=== PATIENT | female | born 1945 | race Caucasian/White ===

== ENCOUNTER 2023-12-30 13:02 | Outpatient (REF) | payer MEDICARE, SELFPAY ==
[2023-12-30 13:08] LABS: Abs Immature Grans 0.02 10^3/uL (0.0-0.06); Absolute Basophil Count 0.02 10^3/uL (0.0-0.2); Absolute Eosinophil Count 0.04 10^3/uL (0.0-0.7); Absolute Lymphocyte Count 1.56 10^3/uL (1.2-3.4); Absolute Monocyte Count 0.56 10^3/uL (0.1-0.8); Absolute Neutrophil Count 5.23 10^3/uL (1.2-6.7); Basophils % 0.3 %; Eosinophils % 0.5 %; HGB 12.3 g/dL (11.2-15.7); Immature Grans % 0.3 %; MCH 31.2 pg (27.0-33.0); MCHC 32.4 % (32.0-36.0); MCV 96 fL (80-95); MPV 10.1 fL (8.0-11.0); Monocytes % 7.5 %; Neutrophils % 70.4 %; Platelet Count 304 10^3/uL (130-400); RBC 3.94 10^6/uL (3.93-5.22); RDW 12.6 % (11.7-14.6); RDW-SD 45.1 fL; WBC 7.43 10^3/uL (4.4-10.8)
[2023-12-30 13:26] LABS: ALT 20 U/L (14-59); AST 21 U/L (15-37); Albumin 3.8 g/dL (3.4-5.0); Alkaline Phosphatase 174 U/L (46-116); Anion Gap 11.2 mmol/L (3-11); BUN 16 mg/dL (7-18); Bilirubin, Total 0.5 mg/dL (0.2-1.0); CO2 26.8 mmol/L (21.0-32.0); CREATININE 0.5 mg/dL (0.55-1.02); Calcium 9.4 mg/dL (8.5-10.1); Chloride 103 mmol/L (98-107); Estimated GFR 97.14 (mL/min/1.73m2); Glucose 106 mg/dL (74-106); Potassium 3.9 mmol/L (3.5-5.1); Sodium 141 mmol/L (136-145); TSH 2.21 uIU/Ml (0.36-3.74); Total Protein 8.1 g/dL (6.4-8.2)
== END 2023-12-30 13:03 | disposition home or self-care (01) ==
LOC: LBN 13:02
PROVIDERS: PCP Family Medicine; Visit Provider Internal Medicine Medical Oncology
DX: C34.12 Malignant neoplasm of upper lobe, left bronchus or lung (principal); C79.51 Secondary malignant neoplasm of bone; Z79.899 Other long term (current) drug therapy
CPT/HCPCS: 80053; 84439; 84443; 85025

== ENCOUNTER 2024-01-20 09:39 | Outpatient (CLI) | payer MEDICARE, SELFPAY ==
[2024-01-20 09:10] LABS: Abs Immature Grans 0.03 10^3/uL (0.0-0.06); Absolute Basophil Count 0.04 10^3/uL (0.0-0.2); Absolute Lymphocyte Count 1.37 10^3/uL (1.2-3.4); Absolute Monocyte Count 0.94 10^3/uL (0.1-0.8); Absolute Neutrophil Count 3.55 10^3/uL (1.2-6.7); Basophils % 0.6 %; Eosinophils % 4.8 %; HCT 36.5 % (36.0-46.0); HGB 11.7 g/dL (11.2-15.7); Immature Grans % 0.5 %; MCH 30.8 pg (27.0-33.0); MCHC 32.1 % (32.0-36.0); MCV 96 fL (80-95); MPV 8.3 fL (8.0-11.0); Monocytes % 15.1 %; Platelet Count 386 10^3/uL (130-400); RDW 13.1 % (11.7-14.6); RDW-SD 46.5 fL; WBC 6.23 10^3/uL (4.4-10.8)
[2024-01-20 09:35] LABS: ALT 23 U/L (14-59); AST 14 U/L (15-37); Albumin 3.6 g/dL (3.4-5.0); Alkaline Phosphatase 146 U/L (46-116); BUN 11 mg/dL (7-18); Bilirubin, Total 0.4 mg/dL (0.2-1.0); CREATININE 0.6 mg/dL (0.55-1.02); Calcium 9.3 mg/dL (8.5-10.1); Chloride 103 mmol/L (98-107); Estimated GFR 92.97 (mL/min/1.73m2); FREE T4 0.98 ng/dL (0.76-1.46); Glucose 104 mg/dL (74-106); Magnesium 2.2 mg/dL (1.8-2.4); Potassium 3.3 mmol/L (3.5-5.1); Sodium 141 mmol/L (136-145); TSH 3.49 uIU/Ml (0.36-3.74)
== END 2024-01-20 09:40 | disposition home or self-care (01) ==
LOC: LBO 09:40
PROVIDERS: PCP Family Medicine; Visit Provider Internal Medicine Medical Oncology
DX: Z79.899 Other long term (current) drug therapy (principal); C34.12 Malignant neoplasm of upper lobe, left bronchus or lung
CPT/HCPCS: 36415; 80053; 83735; 84439; 84443; 85025

== ENCOUNTER 2024-02-10 03:02 | Outpatient (CLI) | payer MEDICARE, SELFPAY ==
[2024-02-10 09:07] LABS: Abs Immature Grans 0.12 10^3/uL (0.0-0.06); Absolute Basophil Count 0.05 10^3/uL (0.0-0.2); Absolute Eosinophil Count 0.24 10^3/uL (0.0-0.7); Absolute Lymphocyte Count 1.86 10^3/uL (1.2-3.4); Absolute Monocyte Count 0.88 10^3/uL (0.1-0.8); Basophils % 0.4 %; HCT 35.1 % (36.0-46.0); HGB 11.2 g/dL (11.2-15.7); Lymphocytes % 15.8 %; MCH 30.7 pg (27.0-33.0); MCHC 31.9 % (32.0-36.0); MCV 96 fL (80-95); MPV 7.8 fL (8.0-11.0); Monocytes % 7.5 %; Neutrophils % 73.3 %; Platelet Count 524 10^3/uL (130-400); RBC 3.65 10^6/uL (3.93-5.22); RDW 14.4 % (11.7-14.6); RDW-SD 50.2 fL; WBC 11.77 10^3/uL (4.4-10.8)
[2024-02-10 09:09] LABS: Absolute Neutrophil Count 8.63 10^3/uL (1.2-6.7)
[2024-02-10 09:31] LABS: ALT 34 U/L (14-59); AST 16 U/L (15-37); Albumin 3.6 g/dL (3.4-5.0); Alkaline Phosphatase 114 U/L (46-116); Anion Gap 7.6 mmol/L (3-11); BUN 16 mg/dL (7-18); Bilirubin, Total 0.23 mg/dL (0.2-1.0); CO2 30.4 mmol/L (21.0-32.0); CREATININE 0.7 mg/dL (0.55-1.02); Calcium 9.1 mg/dL (8.5-10.1); Chloride 103 mmol/L (98-107); Estimated GFR 89.58 (mL/min/1.73m2); FREE T4 1.03 ng/dL (0.76-1.46); Glucose 95 mg/dL (74-106); Magnesium 1.9 mg/dL (1.8-2.4); Potassium 3.7 mmol/L (3.5-5.1); Sodium 141 mmol/L (136-145); TSH 4.68 uIU/Ml (0.36-3.74); Total Protein 7.9 g/dL (6.4-8.2)
== END 2024-02-10 03:03 | disposition home or self-care (01) ==
LOC: LBO 03:03
PROVIDERS: PCP Family Medicine; Visit Provider Internal Medicine Medical Oncology
DX: Z79.899 Other long term (current) drug therapy (principal); C34.12 Malignant neoplasm of upper lobe, left bronchus or lung
CPT/HCPCS: 36415; 80053; 83735; 84439; 84443; 85025

== ENCOUNTER 2024-03-02 03:26 | Outpatient (CLI) | payer MEDICARE, SELFPAY ==
[2024-03-02 10:30] LABS: Abs Immature Grans 0.03 10^3/uL (0.0-0.06); Absolute Basophil Count 0.03 10^3/uL (0.0-0.2); Absolute Eosinophil Count 0.16 10^3/uL (0.0-0.7); Absolute Lymphocyte Count 1.14 10^3/uL (1.2-3.4); Absolute Monocyte Count 0.55 10^3/uL (0.1-0.8); Absolute Neutrophil Count 8.68 10^3/uL (1.2-6.7); Basophils % 0.3 %; Eosinophils % 1.5 %; HCT 37.8 % (36.0-46.0); HGB 12.1 g/dL (11.2-15.7); Immature Grans % 0.3 %; Lymphocytes % 10.8 %; MCH 31.3 pg (27.0-33.0); MCV 98 fL (80-95); MPV 8.3 fL (8.0-11.0); Monocytes % 5.2 %; Neutrophils % 81.9 %; Platelet Count 353 10^3/uL (130-400); RBC 3.86 10^6/uL (3.93-5.22); RDW-SD 60.3 fL; WBC 10.59 10^3/uL (4.4-10.8)
[2024-03-02 10:56] LABS: ALT 29 U/L (14-59); AST 17 U/L (15-37); Albumin 3.7 g/dL (3.4-5.0); Alkaline Phosphatase 139 U/L (46-116); Anion Gap 7.2 mmol/L (3-11); BUN 14 mg/dL (7-18); CO2 28.8 mmol/L (21.0-32.0); CREATININE 0.7 mg/dL (0.55-1.02); Chloride 106 mmol/L (98-107); Estimated GFR 89.58 (mL/min/1.73m2); FREE T4 0.98 ng/dL (0.76-1.46); Glucose 98 mg/dL (74-106); Potassium 3.8 mmol/L (3.5-5.1); Sodium 142 mmol/L (136-145); TSH 2.06 uIU/Ml (0.36-3.74)
== END 2024-03-02 03:27 | disposition home or self-care (01) ==
LOC: LBO 03:26
PROVIDERS: PCP Family Medicine; Visit Provider Internal Medicine Medical Oncology
DX: Z79.899 Other long term (current) drug therapy (principal); C34.12 Malignant neoplasm of upper lobe, left bronchus or lung
CPT/HCPCS: 36415; 80053; 83735; 84439; 84443; 85025

== ENCOUNTER 2024-03-23 03:21 | Outpatient (CLI) | payer MEDICARE, SELFPAY ==
[2024-03-23 09:50] LABS: Abs Immature Grans 0.07 10^3/uL (0.0-0.06); Absolute Basophil Count 0.03 10^3/uL (0.0-0.2); Absolute Eosinophil Count 0.08 10^3/uL (0.0-0.7); Absolute Lymphocyte Count 1.08 10^3/uL (1.2-3.4); Absolute Monocyte Count 0.63 10^3/uL (0.1-0.8); Absolute Neutrophil Count 8.04 10^3/uL (1.2-6.7); Basophils % 0.3 %; Eosinophils % 0.8 %; HCT 38.6 % (36.0-46.0); HGB 12.2 g/dL (11.2-15.7); Immature Grans % 0.7 %; Lymphocytes % 10.9 %; MCH 31.6 pg (27.0-33.0); MCHC 31.6 % (32.0-36.0); MCV 100 fL (80-95); MPV 8.5 fL (8.0-11.0); Monocytes % 6.3 %; Platelet Count 323 10^3/uL (130-400); RBC 3.86 10^6/uL (3.93-5.22); RDW 17.2 % (11.7-14.6); RDW-SD 63.7 fL; WBC 9.93 10^3/uL (4.4-10.8)
[2024-03-23 10:28] LABS: ALT 25 U/L (14-59); AST 15 U/L (15-37); Albumin 3.8 g/dL (3.4-5.0); Alkaline Phosphatase 119 U/L (46-116); Anion Gap 5.8 mmol/L (3-11); BUN 20 mg/dL (7-18); CO2 32.2 mmol/L (21.0-32.0); CREATININE 0.7 mg/dL (0.55-1.02); Calcium 9.9 mg/dL (8.5-10.1); Chloride 103 mmol/L (98-107); Estimated GFR 89.58 (mL/min/1.73m2); FREE T4 0.73 ng/dL (0.76-1.46); Glucose 96 mg/dL (74-106); Potassium 4.2 mmol/L (3.5-5.1); Sodium 141 mmol/L (136-145); TSH 1.85 uIU/Ml (0.36-3.74); Total Protein 7.7 g/dL (6.4-8.2)
== END 2024-03-23 03:22 | disposition home or self-care (01) ==
LOC: LBO 03:22
PROVIDERS: PCP Family Medicine; Visit Provider Internal Medicine Medical Oncology
DX: Z79.899 Other long term (current) drug therapy (principal); C34.12 Malignant neoplasm of upper lobe, left bronchus or lung
CPT/HCPCS: 36415; 80053; 83735; 84439; 84443; 85025

== ENCOUNTER 2024-04-13 03:15 | Outpatient (CLI) | payer MEDICARE, SELFPAY ==
[2024-04-13 08:10] LABS: Abs Immature Grans 0.02 10^3/uL (0.0-0.06); Absolute Basophil Count 0.03 10^3/uL (0.0-0.2); Absolute Eosinophil Count 0.16 10^3/uL (0.0-0.7); Absolute Lymphocyte Count 2.62 10^3/uL (1.2-3.4); Absolute Monocyte Count 0.65 10^3/uL (0.1-0.8); Absolute Neutrophil Count 4.83 10^3/uL (1.2-6.7); Basophils % 0.4 %; Eosinophils % 1.9 %; HCT 38.1 % (36.0-46.0); Immature Grans % 0.2 %; Lymphocytes % 31.5 %; MCH 32.6 pg (27.0-33.0); MCHC 31.5 % (32.0-36.0); MCV 104 fL (80-95); MPV 8.6 fL (8.0-11.0); Monocytes % 7.8 %; Neutrophils % 58.2 %; Platelet Count 298 10^3/uL (130-400); RBC 3.68 10^6/uL (3.93-5.22); RDW 14.7 % (11.7-14.6); RDW-SD 56.7 fL; WBC 8.31 10^3/uL (4.4-10.8)
[2024-04-13 08:37] LABS: ALT 20 U/L (14-59); AST 16 U/L (15-37); Albumin 3.8 g/dL (3.4-5.0); Alkaline Phosphatase 94 U/L (46-116); Anion Gap 4.6 mmol/L (3-11); BUN 15 mg/dL (7-18); Bilirubin, Total 0.44 mg/dL (0.2-1.0); CO2 33.4 mmol/L (21.0-32.0); CREATININE 0.7 mg/dL (0.55-1.02); Calcium 9.6 mg/dL (8.5-10.1); Chloride 105 mmol/L (98-107); Estimated GFR 89.58 (mL/min/1.73m2); FREE T4 1.01 ng/dL (0.76-1.46); Glucose 107 mg/dL (74-106); Potassium 3.2 mmol/L (3.5-5.1); Sodium 143 mmol/L (136-145); TSH 4.48 uIU/Ml (0.36-3.74); Total Protein 7.7 g/dL (6.4-8.2)
== END 2024-04-13 03:16 | disposition home or self-care (01) ==
LOC: LBO 03:15
PROVIDERS: PCP Family Medicine; Visit Provider Internal Medicine Medical Oncology
DX: Z79.899 Other long term (current) drug therapy (principal); C34.12 Malignant neoplasm of upper lobe, left bronchus or lung; C79.51 Secondary malignant neoplasm of bone
CPT/HCPCS: 36415; 80053; 84439; 84443; 85025

== ENCOUNTER 2024-05-04 04:21 | Outpatient (CLI) | payer MEDICARE, SELFPAY ==
[2024-05-04 07:54] LABS: Abs Immature Grans 0.03 10^3/uL (0.0-0.06); Absolute Basophil Count 0.03 10^3/uL (0.0-0.2); Absolute Eosinophil Count 0.14 10^3/uL (0.0-0.7); Absolute Neutrophil Count 8.04 10^3/uL (1.2-6.7); Basophils % 0.3 %; Eosinophils % 1.3 %; HGB 12.5 g/dL (11.2-15.7); Immature Grans % 0.3 %; Lymphocytes % 17.7 %; MCH 33.3 pg (27.0-33.0); MCHC 32.9 % (32.0-36.0); MCV 101 fL (80-95); MPV 8.9 fL (8.0-11.0); Monocytes % 5.6 %; Neutrophils % 74.8 %; Platelet Count 304 10^3/uL (130-400); RBC 3.75 10^6/uL (3.93-5.22); RDW-SD 48.7 fL; WBC 10.74 10^3/uL (4.4-10.8)
[2024-05-04 08:23] LABS: ALT 30 U/L (14-59); AST 18 U/L (15-37); Albumin 3.9 g/dL (3.4-5.0); Alkaline Phosphatase 95 U/L (46-116); Anion Gap 8.2 mmol/L (3-11); BUN 13 mg/dL (7-18); Bilirubin, Total 0.54 mg/dL (0.2-1.0); CO2 29.8 mmol/L (21.0-32.0); CREATININE 0.8 mg/dL (0.55-1.02); Calcium 9.8 mg/dL (8.5-10.1); Chloride 105 mmol/L (98-107); Estimated GFR 76.31 (mL/min/1.73m2); Glucose 103 mg/dL (74-106); Magnesium 2.1 mg/dL (1.8-2.4); Sodium 143 mmol/L (136-145); TSH 4.11 uIU/Ml (0.36-3.74); Total Protein 8.1 g/dL (6.4-8.2)
== END 2024-05-04 04:22 | disposition home or self-care (01) ==
LOC: LBO 04:21
PROVIDERS: PCP Family Medicine; Visit Provider Internal Medicine Medical Oncology
DX: Z79.899 Other long term (current) drug therapy (principal); C34.12 Malignant neoplasm of upper lobe, left bronchus or lung
CPT/HCPCS: 36415; 80053; 83735; 84439; 84443; 85025

== ENCOUNTER 2024-05-25 08:21 | Outpatient (CLI) | payer MEDICARE, SELFPAY ==
[2024-05-25 07:45] LABS: Abs Immature Grans 0.02 10^3/uL (0.0-0.06); Absolute Basophil Count 0.04 10^3/uL (0.0-0.2); Absolute Eosinophil Count 0.57 10^3/uL (0.0-0.7); Absolute Lymphocyte Count 2.38 10^3/uL (1.2-3.4); Absolute Monocyte Count 0.78 10^3/uL (0.1-0.8); Absolute Neutrophil Count 4.85 10^3/uL (1.2-6.7); Basophils % 0.5 %; Eosinophils % 6.6 %; HCT 36.8 % (36.0-46.0); Immature Grans % 0.2 %; Lymphocytes % 27.5 %; MCH 33.1 pg (27.0-33.0); MCHC 32.6 % (32.0-36.0); MCV 101 fL (80-95); MPV 8.8 fL (8.0-11.0); Neutrophils % 56.2 %; Platelet Count 307 10^3/uL (130-400); RBC 3.63 10^6/uL (3.93-5.22); RDW 11.9 % (11.7-14.6); RDW-SD 44.2 fL; WBC 8.64 10^3/uL (4.4-10.8)
[2024-05-25 08:24] LABS: ALT 27 U/L (14-59); AST 20 U/L (15-37); Albumin 3.7 g/dL (3.4-5.0); Alkaline Phosphatase 84 U/L (46-116); BUN 16 mg/dL (7-18); Bilirubin, Total 0.51 mg/dL (0.2-1.0); CREATININE 0.7 mg/dL (0.55-1.02); Calcium 9.7 mg/dL (8.5-10.1); Chloride 109 mmol/L (98-107); Estimated GFR 89.58 (mL/min/1.73m2); FREE T4 0.91 ng/dL (0.76-1.46); Glucose 95 mg/dL (74-106); Potassium 3.7 mmol/L (3.5-5.1); Sodium 145 mmol/L (136-145); TSH 5.03 uIU/Ml (0.36-3.74); Total Protein 7.7 g/dL (6.4-8.2)
== END 2024-05-25 08:22 | disposition home or self-care (01) ==
LOC: LBO 08:22
PROVIDERS: PCP Family Medicine; Visit Provider Internal Medicine Medical Oncology
DX: Z79.899 Other long term (current) drug therapy (principal); C34.12 Malignant neoplasm of upper lobe, left bronchus or lung; C79.51 Secondary malignant neoplasm of bone
CPT/HCPCS: 36415; 80053; 83735; 84439; 84443; 85025

== ENCOUNTER 2024-06-15 02:05 | Outpatient (CLI) | payer MEDICARE, SELFPAY ==
[2024-06-15 08:04] LABS: Abs Immature Grans 0.03 10^3/uL (0.0-0.06); Absolute Basophil Count 0.05 10^3/uL (0.0-0.2); Absolute Eosinophil Count 0.56 10^3/uL (0.0-0.7); Absolute Lymphocyte Count 2.63 10^3/uL (1.2-3.4); Absolute Monocyte Count 0.75 10^3/uL (0.1-0.8); Absolute Neutrophil Count 3.81 10^3/uL (1.2-6.7); Basophils % 0.6 %; Eosinophils % 7.2 %; HCT 35.5 % (36.0-46.0); HGB 11.5 g/dL (11.2-15.7); Immature Grans % 0.4 %; Lymphocytes % 33.6 %; MCH 32.5 pg (27.0-33.0); MCHC 32.4 % (32.0-36.0); MCV 100 fL (80-95); MPV 8.5 fL (8.0-11.0); Monocytes % 9.6 %; Neutrophils % 48.6 %; Platelet Count 397 10^3/uL (130-400); RBC 3.54 10^6/uL (3.93-5.22); RDW 12.1 % (11.7-14.6); RDW-SD 45.4 fL; WBC 7.83 10^3/uL (4.4-10.8)
[2024-06-15 08:38] LABS: ALT 32 U/L (14-59); AST 36 U/L (15-37); Albumin 3.3 g/dL (3.4-5.0); Alkaline Phosphatase 87 U/L (46-116); Anion Gap 6.7 mmol/L (3-11); BUN 6 mg/dL (7-18); Bilirubin, Total 0.57 mg/dL (0.2-1.0); CO2 32.3 mmol/L (21.0-32.0); CREATININE 0.7 mg/dL (0.55-1.02); Calcium 9.2 mg/dL (8.5-10.1); Chloride 107 mmol/L (98-107); Estimated GFR 89.58 (mL/min/1.73m2); FREE T4 1.06 ng/dL (0.76-1.46); Glucose 97 mg/dL (74-106); Magnesium 1.7 mg/dL (1.8-2.4); Potassium 3.2 mmol/L (3.5-5.1); Sodium 146 mmol/L (136-145); TSH 6.95 uIU/mL (0.36-3.74); Total Protein 7.3 g/dL (6.4-8.2)
== END 2024-06-15 02:06 | disposition home or self-care (01) ==
LOC: LBO 02:05
PROVIDERS: PCP Family Medicine; Visit Provider Internal Medicine Medical Oncology
DX: Z79.899 Other long term (current) drug therapy (principal); C34.12 Malignant neoplasm of upper lobe, left bronchus or lung; C79.51 Secondary malignant neoplasm of bone
CPT/HCPCS: 36415; 80053; 83735; 84439; 84443; 85025

== ENCOUNTER 2024-07-06 03:07 | Outpatient (CLI) | payer MEDICARE, SELFPAY ==
[2024-07-06 08:33] LABS: Abs Immature Grans 0.04 10^3/uL (0.0-0.06); Absolute Basophil Count 0.04 10^3/uL (0.0-0.2); Absolute Eosinophil Count 0.22 10^3/uL (0.0-0.7); Absolute Lymphocyte Count 2.19 10^3/uL (1.2-3.4); Absolute Monocyte Count 0.57 10^3/uL (0.1-0.8); Absolute Neutrophil Count 7.29 10^3/uL (1.2-6.7); Basophils % 0.4 %; Eosinophils % 2.1 %; HGB 11.3 g/dL (11.2-15.7); Immature Grans % 0.4 %; Lymphocytes % 21.2 %; MCH 31.9 pg (27.0-33.0); MCHC 31.4 % (32.0-36.0); MCV 102 fL (80-95); MPV 8.6 fL (8.0-11.0); Monocytes % 5.5 %; Neutrophils % 70.4 %; Platelet Count 337 10^3/uL (130-400); RBC 3.54 10^6/uL (3.93-5.22); RDW 12.6 % (11.7-14.6); RDW-SD 47.6 fL; WBC 10.35 10^3/uL (4.4-10.8)
[2024-07-06 09:01] LABS: ALT 27 U/L (14-59); AST 18 U/L (15-37); Albumin 3.7 g/dL (3.4-5.0); Alkaline Phosphatase 89 U/L (46-116); Anion Gap 6.3 mmol/L (3-11); BUN 16 mg/dL (7-18); Bilirubin, Total 0.57 mg/dL (0.2-1.0); CO2 30.7 mmol/L (21.0-32.0); CREATININE 0.8 mg/dL (0.55-1.02); Calcium 9.3 mg/dL (8.5-10.1); Chloride 108 mmol/L (98-107); Estimated GFR 75.84 (mL/min/1.73m2); Glucose 98 mg/dL (74-106); Magnesium 1.9 mg/dL (1.8-2.4); Potassium 3.4 mmol/L (3.5-5.1); Sodium 145 mmol/L (136-145); TSH 4.61 uIU/mL (0.36-3.74); Total Protein 7.5 g/dL (6.4-8.2)
== END 2024-07-06 03:08 | disposition home or self-care (01) ==
LOC: LBO 03:07
PROVIDERS: PCP Family Medicine; Visit Provider Internal Medicine Medical Oncology
DX: Z79.899 Other long term (current) drug therapy (principal); C34.12 Malignant neoplasm of upper lobe, left bronchus or lung
CPT/HCPCS: 36415; 80053; 83735; 84439; 84443; 85025

== ENCOUNTER 2024-08-18 02:20 | Outpatient (CLI) | payer MEDICARE, SELFPAY ==
[2024-08-18 12:30] LABS: Abs Immature Grans 0.03 10^3/uL (0.0-0.06); Absolute Basophil Count 0.01 10^3/uL (0.0-0.2); Absolute Eosinophil Count 0.04 10^3/uL (0.0-0.7); Absolute Monocyte Count 0.23 10^3/uL (0.1-0.8); Absolute Neutrophil Count 5.79 10^3/uL (1.2-6.7); Basophils % 0.1 %; Eosinophils % 0.6 %; HCT 35.9 % (36.0-46.0); HGB 11.4 g/dL (11.2-15.7); Immature Grans % 0.4 %; Lymphocytes % 15.3 %; MCH 31.7 pg (27.0-33.0); MCHC 31.8 % (32.0-36.0); MCV 100 fL (80-95); MPV 8.5 fL (8.0-11.0); Monocytes % 3.2 %; Neutrophils % 80.4 %; Platelet Count 322 10^3/uL (130-400); RDW 13.8 % (11.7-14.6); RDW-SD 51.1 fL
[2024-08-18 12:54] LABS: ALT 24 U/L (14-59); AST 17 U/L (15-37); Albumin 3.8 g/dL (3.4-5.0); Alkaline Phosphatase 78 U/L (46-116); Anion Gap 5.6 mmol/L (3-11); BUN 13 mg/dL (7-18); Bilirubin, Total 0.28 mg/dL (0.2-1.0); CO2 31.4 mmol/L (21.0-32.0); CREATININE 0.8 mg/dL (0.55-1.02); Calcium 9.7 mg/dL (8.5-10.1); Chloride 108 mmol/L (98-107); Estimated GFR 75.84 (mL/min/1.73m2); FREE T4 0.95 ng/dL (0.76-1.46); Glucose 112 mg/dL (74-106); Magnesium 1.9 mg/dL (1.8-2.4); Potassium 4.1 mmol/L (3.5-5.1); Sodium 145 mmol/L (136-145); TSH 1.55 uIU/mL (0.36-3.74); Total Protein 7.6 g/dL (6.4-8.2)
== END 2024-08-18 02:21 | disposition home or self-care (01) ==
LOC: LBO 02:20
PROVIDERS: PCP Family Medicine; Visit Provider Internal Medicine Medical Oncology
DX: Z79.899 Other long term (current) drug therapy (principal); C34.12 Malignant neoplasm of upper lobe, left bronchus or lung; C79.51 Secondary malignant neoplasm of bone
CPT/HCPCS: 36415; 80053; 83735; 84439; 84443; 85025

== ENCOUNTER 2024-09-08 02:27 | Outpatient (CLI) | payer MEDICARE, SELFPAY ==
[2024-09-08 08:37] LABS: Abs Immature Grans 0.05 10^3/uL (0.0-0.06); Absolute Eosinophil Count 0.22 10^3/uL (0.0-0.7); Absolute Lymphocyte Count 2.26 10^3/uL (1.2-3.4); Absolute Monocyte Count 0.69 10^3/uL (0.1-0.8); Basophils % 0.5 %; HCT 37.6 % (36.0-46.0); HGB 12.1 g/dL (11.2-15.7); Immature Grans % 0.5 %; Lymphocytes % 20.5 %; MCH 32.3 pg (27.0-33.0); MCHC 32.2 % (32.0-36.0); MCV 100 fL (80-95); MPV 8.6 fL (8.0-11.0); Monocytes % 6.3 %; Neutrophils % 70.2 %; Platelet Count 305 10^3/uL (130-400); RBC 3.75 10^6/uL (3.93-5.22); RDW 14.2 % (11.7-14.6); RDW-SD 52.6 fL; WBC 11.02 10^3/uL (4.4-10.8)
[2024-09-08 08:38] LABS: Absolute Basophil Count 0.06 10^3/uL (0.0-0.2); Absolute Neutrophil Count 7.74 10^3/uL (1.2-6.7)
[2024-09-08 09:01] LABS: ALT 22 U/L (14-59); AST 15 U/L (15-37); Albumin 3.8 g/dL (3.4-5.0); Alkaline Phosphatase 85 U/L (46-116); Anion Gap 3.7 mmol/L (3-11); BUN 20 mg/dL (7-18); Bilirubin, Total 0.48 mg/dL (0.2-1.0); CO2 34.3 mmol/L (21.0-32.0); CREATININE 0.8 mg/dL (0.55-1.02); Calcium 9.8 mg/dL (8.5-10.1); Chloride 107 mmol/L (98-107); Estimated GFR 75.84 (mL/min/1.73m2); FREE T4 0.89 ng/dL (0.76-1.46); Glucose 97 mg/dL (74-106); Magnesium 1.9 mg/dL (1.8-2.4); Sodium 145 mmol/L (136-145); TSH 4.53 uIU/mL (0.36-3.74); Total Protein 7.8 g/dL (6.4-8.2)
== END 2024-09-08 02:28 | disposition home or self-care (01) ==
LOC: LBO 02:27
PROVIDERS: PCP Family Medicine; Visit Provider Internal Medicine Medical Oncology
DX: Z79.899 Other long term (current) drug therapy (principal); C34.12 Malignant neoplasm of upper lobe, left bronchus or lung; C79.51 Secondary malignant neoplasm of bone
CPT/HCPCS: 36415; 80053; 83735; 84439; 84443; 85025

== ENCOUNTER 2024-09-28 13:49 | Outpatient (CLI) | payer MEDICARE, SELFPAY ==
[2024-09-28 13:45] LABS: Abs Immature Grans 0.03 10^3/uL (0.0-0.06); Absolute Basophil Count 0.04 10^3/uL (0.0-0.2); Absolute Eosinophil Count 0.03 10^3/uL (0.0-0.7); Absolute Lymphocyte Count 1.26 10^3/uL (1.2-3.4); Absolute Monocyte Count 0.31 10^3/uL (0.1-0.8); Absolute Neutrophil Count 7.35 10^3/uL (1.2-6.7); Basophils % 0.4 %; Eosinophils % 0.3 %; HGB 11.9 g/dL (11.2-15.7); Immature Grans % 0.3 %; MCHC 32.2 % (32.0-36.0); MCV 100 fL (80-95); MPV 8.4 fL (8.0-11.0); Monocytes % 3.4 %; Neutrophils % 81.6 %; Platelet Count 324 10^3/uL (130-400); RBC 3.72 10^6/uL (3.93-5.22); RDW 13.4 % (11.7-14.6); RDW-SD 49.3 fL; WBC 9.02 10^3/uL (4.4-10.8)
[2024-09-28 14:12] LABS: ALT 25 U/L (14-59); AST 14 U/L (15-37); Albumin 3.7 g/dL (3.4-5.0); Alkaline Phosphatase 79 U/L (46-116); BUN 25 mg/dL (7-18); Bilirubin, Total 0.32 mg/dL (0.2-1.0); Calcium 9.9 mg/dL (8.5-10.1); Chloride 106 mmol/L (98-107); Estimated GFR 58.02 (mL/min/1.73m2); FREE T4 0.91 ng/dL (0.76-1.46); Glucose 124 mg/dL (74-106); Magnesium 1.6 mg/dL (1.8-2.4); Potassium 3.5 mmol/L (3.5-5.1); Sodium 143 mmol/L (136-145); TSH 1.28 uIU/mL (0.36-3.74); Total Protein 7.6 g/dL (6.4-8.2)
== END 2024-09-28 13:50 | disposition home or self-care (01) ==
LOC: LBO 13:51
PROVIDERS: PCP Family Medicine; Visit Provider Internal Medicine Medical Oncology
DX: Z79.899 Other long term (current) drug therapy (principal); C34.12 Malignant neoplasm of upper lobe, left bronchus or lung; C79.51 Secondary malignant neoplasm of bone
CPT/HCPCS: 36415; 80053; 83735; 84439; 84443; 85025

== ENCOUNTER 2024-10-19 11:20 | Outpatient (CLI) | payer MEDICARE, SELFPAY ==
[2024-10-19 09:13] LABS: Abs Immature Grans 0.03 10^3/uL (0.0-0.06); Absolute Basophil Count 0.03 10^3/uL (0.0-0.2); Absolute Eosinophil Count 0.31 10^3/uL (0.0-0.7); Absolute Lymphocyte Count 2.86 10^3/uL (1.2-3.4); Absolute Monocyte Count 0.86 10^3/uL (0.1-0.8); Absolute Neutrophil Count 4.01 10^3/uL (1.2-6.7); Basophils % 0.4 %; Eosinophils % 3.8 %; HCT 37.8 % (36.0-46.0); HGB 12.2 g/dL (11.2-15.7); Immature Grans % 0.4 %; Lymphocytes % 35.3 %; MCH 32.4 pg (27.0-33.0); MCHC 32.3 % (32.0-36.0); MCV 100 fL (80-95); MPV 8.4 fL (8.0-11.0); Monocytes % 10.6 %; Neutrophils % 49.5 %; Platelet Count 289 10^3/uL (130-400); RBC 3.77 10^6/uL (3.93-5.22); RDW 12.9 % (11.7-14.6); RDW-SD 47.6 fL
[2024-10-19 09:46] LABS: ALT 16 U/L (14-59); AST 16 U/L (15-37); Albumin 3.6 g/dL (3.4-5.0); Alkaline Phosphatase 79 U/L (46-116); Anion Gap 6.3 mmol/L (3-11); BUN 17 mg/dL (7-18); Bilirubin, Total 0.68 mg/dL (0.2-1.0); CO2 34.7 mmol/L (21.0-32.0); CREATININE 0.8 mg/dL (0.55-1.02); Calcium 9.7 mg/dL (8.5-10.1); Chloride 104 mmol/L (98-107); Estimated GFR 75.84 (mL/min/1.73m2); Glucose 95 mg/dL (74-106); Magnesium 1.8 mg/dL (1.8-2.4); Potassium 3.4 mmol/L (3.5-5.1); Sodium 145 mmol/L (136-145); TSH 5.15 uIU/mL (0.36-3.74); Total Protein 7.4 g/dL (6.4-8.2)
[2024-10-19 18:18] LABS: T4, Free 1.4 ng/dL (0.8-2.2)
== END 2024-10-19 11:21 | disposition home or self-care (01) ==
LOC: LBO 11:21
PROVIDERS: PCP Family Medicine; Visit Provider Internal Medicine Medical Oncology
DX: Z79.899 Other long term (current) drug therapy (principal); C34.12 Malignant neoplasm of upper lobe, left bronchus or lung
CPT/HCPCS: 36415; 80053; 83735; 84439; 84443; 85025

== ENCOUNTER 2024-11-09 02:43 | Outpatient (CLI) | payer MEDICARE, SELFPAY ==
[2024-11-09 12:22] LABS: Abs Immature Grans 0.08 10^3/uL (0.0-0.06); Absolute Basophil Count 0.04 10^3/uL (0.0-0.2); Absolute Eosinophil Count 0.17 10^3/uL (0.0-0.7); Absolute Lymphocyte Count 1.77 10^3/uL (1.2-3.4); Absolute Monocyte Count 0.48 10^3/uL (0.1-0.8); Basophils % 0.3 %; Eosinophils % 1.2 %; HCT 36.9 % (36.0-46.0); HGB 11.9 g/dL (11.2-15.7); Immature Grans % 0.6 %; Lymphocytes % 12.8 %; MCH 32.3 pg (27.0-33.0); MCHC 32.2 % (32.0-36.0); MCV 100 fL (80-95); MPV 8.6 fL (8.0-11.0); Monocytes % 3.5 %; Neutrophils % 81.6 %; Platelet Count 374 10^3/uL (130-400); RBC 3.68 10^6/uL (3.93-5.22); RDW-SD 47.8 fL; WBC 13.85 10^3/uL (4.4-10.8)
[2024-11-09 13:01] LABS: ALT 30 U/L (14-59); AST 17 U/L (15-37); Albumin 3.9 g/dL (3.4-5.0); Alkaline Phosphatase 75 U/L (46-116); Anion Gap 10.5 mmol/L (3-11); BUN 26 mg/dL (7-18); Bilirubin, Total 0.6 mg/dL (0.2-1.0); CO2 29.5 mmol/L (21.0-32.0); CREATININE 0.8 mg/dL (0.55-1.02); Calcium 10.5 mg/dL (8.5-10.1); Chloride 104 mmol/L (98-107); Estimated GFR 75.84 (mL/min/1.73m2); Glucose 118 mg/dL (74-106); Magnesium 1.8 mg/dL (1.8-2.4); Potassium 3.6 mmol/L (3.5-5.1); Sodium 144 mmol/L (136-145); TSH 1.44 uIU/mL (0.36-3.74); Total Protein 7.9 g/dL (6.4-8.2)
[2024-11-09 22:23] LABS: T4, Free 1.6 ng/dL (0.8-2.2)
== END 2024-11-09 02:44 | disposition home or self-care (01) ==
LOC: LBO 02:43
PROVIDERS: PCP Family Medicine; Visit Provider Internal Medicine Medical Oncology
DX: Z79.899 Other long term (current) drug therapy (principal); C34.12 Malignant neoplasm of upper lobe, left bronchus or lung; C79.51 Secondary malignant neoplasm of bone
CPT/HCPCS: 36415; 80053; 83735; 84439; 84443; 85025

== ENCOUNTER 2024-11-30 03:03 | Outpatient (CLI) | payer MEDICARE, SELFPAY ==
[2024-11-30 08:18] LABS: Abs Immature Grans 0.02 10^3/uL (0.0-0.06); Absolute Basophil Count 0.03 10^3/uL (0.0-0.2); Absolute Eosinophil Count 0.47 10^3/uL (0.0-0.7); Absolute Lymphocyte Count 3.13 10^3/uL (1.2-3.4); Absolute Monocyte Count 0.78 10^3/uL (0.1-0.8); Absolute Neutrophil Count 2.82 10^3/uL (1.2-6.7); Basophils % 0.4 %; Eosinophils % 6.5 %; HCT 33.7 % (36.0-46.0); HGB 11.3 g/dL (11.2-15.7); Immature Grans % 0.3 %; Lymphocytes % 43.2 %; MCHC 33.5 % (32.0-36.0); MCV 99 fL (80-95); MPV 8.8 fL (8.0-11.0); Monocytes % 10.8 %; Neutrophils % 38.8 %; Platelet Count 328 10^3/uL (130-400); RBC 3.42 10^6/uL (3.93-5.22); RDW 12.4 % (11.7-14.6); RDW-SD 45.1 fL; WBC 7.25 10^3/uL (4.4-10.8)
[2024-11-30 08:56] LABS: ALT 21 U/L (14-59); AST 17 U/L (15-37); Albumin 3.8 g/dL (3.4-5.0); Alkaline Phosphatase 67 U/L (46-116); Anion Gap 7.7 mmol/L (3-11); BUN 27 mg/dL (7-18); Bilirubin, Total 0.5 mg/dL (0.2-1.0); CO2 31.3 mmol/L (21.0-32.0); CREATININE 0.9 mg/dL (0.55-1.02); Chloride 105 mmol/L (98-107); Estimated GFR 65.84 (mL/min/1.73m2); FREE T4 1.19 ng/dL (0.76-1.46); Glucose 90 mg/dL (74-106); Potassium 3.4 mmol/L (3.5-5.1); Sodium 144 mmol/L (136-145); TSH 2.73 uIU/mL (0.36-3.74); Total Protein 7.5 g/dL (6.4-8.2)
== END 2024-11-30 03:04 | disposition home or self-care (01) ==
LOC: LBO 03:04
PROVIDERS: PCP Family Medicine; Visit Provider Internal Medicine Medical Oncology
DX: Z79.899 Other long term (current) drug therapy (principal); C34.12 Malignant neoplasm of upper lobe, left bronchus or lung
CPT/HCPCS: 36415; 80053; 83735; 84439; 84443; 85025

== ENCOUNTER 2024-12-21 09:31 | Outpatient (CLI) | payer MEDICARE, SELFPAY ==
[2024-12-21 09:22] LABS: Abs Immature Grans 0.07 10^3/uL (0.0-0.06); Absolute Basophil Count 0.04 10^3/uL (0.0-0.2); Absolute Eosinophil Count 0.07 10^3/uL (0.0-0.7); Absolute Lymphocyte Count 1.99 10^3/uL (1.2-3.4); Absolute Monocyte Count 0.53 10^3/uL (0.1-0.8); Basophils % 0.3 %; Eosinophils % 0.6 %; HCT 34.1 % (36.0-46.0); HGB 10.9 g/dL (11.2-15.7); Immature Grans % 0.6 %; MCH 32.2 pg (27.0-33.0); MCV 101 fL (80-95); MPV 8.3 fL (8.0-11.0); Monocytes % 4.5 %; Platelet Count 445 10^3/uL (130-400); RBC 3.39 10^6/uL (3.93-5.22); RDW 12.6 % (11.7-14.6); RDW-SD 46.5 fL; WBC 11.69 10^3/uL (4.4-10.8)
[2024-12-21 10:01] LABS: ALT 24 U/L (14-59); AST 17 U/L (15-37); Albumin 3.6 g/dL (3.4-5.0); Alkaline Phosphatase 68 U/L (46-116); Anion Gap 7.3 mmol/L (3-11); BUN 23 mg/dL (7-18); Bilirubin, Total 0.3 mg/dL (0.2-1.0); CO2 29.7 mmol/L (21.0-32.0); CREATININE 0.9 mg/dL (0.55-1.02); Calcium 9.8 mg/dL (8.5-10.1); Chloride 104 mmol/L (98-107); Estimated GFR 65.84 (mL/min/1.73m2); FREE T4 1.18 ng/dL (0.76-1.46); Glucose 101 mg/dL (74-106); Magnesium 1.7 mg/dL (1.8-2.4); Sodium 141 mmol/L (136-145); TSH 2.59 uIU/mL (0.36-3.74); Total Protein 7.3 g/dL (6.4-8.2)
== END 2024-12-21 09:32 | disposition home or self-care (01) ==
LOC: LBO 09:32
PROVIDERS: PCP Family Medicine; Visit Provider Internal Medicine Medical Oncology
DX: C34.12 Malignant neoplasm of upper lobe, left bronchus or lung (principal); C79.51 Secondary malignant neoplasm of bone
CPT/HCPCS: 36415; 80053; 83735; 84439; 84443; 85025